=== PATIENT | male | born 1955 | race Caucasian/White ===

== ENCOUNTER → 2017-02-11 | Outpatient (CLI) | payer BC ==
[2017-02-11 08:18] LABS: CH 31.6; CHCM 33.3; HCT 46.5 % (39.0-53.0); HDW 2.65; HGB 15.6 gm/dL (13.0-17.5); MCH 32.2 pg (25.0-35.0); MCHC 33.7 g/dL (31.0-37.0); MCV 95.8 fL (80.0-100.0); Mean Platelet Volume 7.3; RBC 4.85 m/uL (4.30-5.90); WBC 5.7 k/uL (3.8-10.6)
[2017-02-11 12:17] LABS: Hemoglobin A1C 5.8 % (4.2-6.1)
[2017-02-11 14:48] LABS: ALT 54 U/L (21-72); AST 45 U/L (17-59); Alkaline Phosphatase 44 U/L (38-126); Anion Gap 11 mmol/L; Blood Urea Nitrogen 23 mg/dL (9-20); Calcium 10.1 mg/dL (8.4-10.2); Carbon Dioxide 23 mmol/L (22-30); Chloride 107 mmol/L (98-107); Glucose 105 mg/dL (74-99); Non-African American GFR(MDRD) >60 (>60 ml/min/1.73 sqM); Potassium 5.2 mmol/L (3.5-5.1); Sodium 141 mmol/L (137-145); Total Bilirubin 0.7 mg/dL (0.2-1.3); Total Protein 7.4 g/dL (6.3-8.2)
[2017-02-11 15:19] LABS: Prostate Specific Antigen 2.94 ng/mL (0.00-4.00)
[2017-02-14 15:28] LABS: Mis test requested (Blood) NMR LIPID PROFILE
== END | disposition home or self-care (01) ==
LOC: LABWHC1 07:41
PROVIDERS: ATTEND Internal Medicine Cardiovascular Disease
DX: I25.10 Atherosclerotic heart disease of native coronary artery without angina pectoris (principal)
CPT/HCPCS: 36415; 80053; 83036; 83704; 84153; 85027

== ENCOUNTER → 2017-10-02 | Outpatient (CLI) | payer BC ==
[2017-10-02 13:28] LABS: Potassium 5.1 mmol/L (3.5-5.1)
== END | disposition home or self-care (01) ==
LOC: LABWHC1 12:01
PROVIDERS: ATTEND Internal Medicine
DX: E87.5 Hyperkalemia (principal)
CPT/HCPCS: 36415; 80051

== ENCOUNTER 2022-04-16 03:59 | Emergency (ER) | payer MEDICARE ==
[2022-04-16 04:04] VITALS: BP 198/98; PULSE 69; RESP 18; TEMP 98.2
--- NOTE | 2022-04-16 04:05 | ED ---
Recheck HPI - General Chief Complaint: Urogenital Stated Complaint: Catheter Problem, Unable to Urinate Time Seen by Provider: 04/16/22 04:05 Source: patient, RN notes reviewed, old records reviewed Mode of arrival: ambulatory Limitations: no limitations - History of Present Illness Initial Comments: This is a 67-year-old male to the emergency department for evaluation patient is scheduled states he has current Duval catheter placed. Patient states the catheter has not drained since 9:00 last night. He does have abdominal pain. Mild nausea no vomiting no other complaints. Patient presents for catheter isn't working MD Complaint: other (Duval catheter not quite working) -: hour(s) Returns Today for: persistent/worsening pain related to initial visit Symptoms Since Prior Visit: worsening pain Associated Symptoms: nausea, abdominal pain Treatments Prior to Arrival: urinary catheter in place - Related Data Home Medications Medication Instructions Recorded Confirmed Aspirin [Adult Low Dose Aspirin EC] 81 mg PO HS 01/09/16 11/30/21 Metoprolol Tartrate [Lopressor] 25 mg PO BID-W/MEALS 01/09/16 11/30/21 lisinopriL [Zestril] 10 mg PO DAILY@1300 01/09/16 11/30/21 Rosuvastatin [Crestor] 10 mg PO HS 11/30/21 11/30/21 Tamsulosin [Flomax] 0.8 mg PO DAILY 11/30/21 11/30/21 Previous Rx's Medication Instructions Recorded Sulfamethox-Tmp 800-160Mg [Bactrim 1 tab PO Q12HR #14 tab 11/30/21 DS 800-160 mg] Allergies Allergy/AdvReac Type Severity Reaction Status Date / Time niacin Allergy Rash/Hives Verified 04/16/22 04:04 Review of Systems ROS Statement: Those systems with pertinent positive or pertinent negative responses have been documented in the HPI. ROS Other: All systems not noted in ROS Statement are negative. Past Medical History Past Medical History: Hyperlipidemia, Hypertension, Prostate Disorder History of Any Multi-Drug Resistant Organisms: None Reported Past Surgical History: Appendectomy Additional Past Surgical History / Comment(s): splenectomy Past Psychological History: No Psychological Hx Reported Smoking Status: Never smoker Past Alcohol Use History: None Reported Past Drug Use History: None Reported General Exam General appearance: alert, in no apparent distress Head exam: Present: atraumatic, normocephalic, normal inspection Eye exam: Present: normal appearance, PERRL, EOMI. Absent: scleral icterus, conjunctival injection, periorbital swelling ENT exam: Present: normal exam, mucous membranes moist Neck exam: Present: normal inspection. Absent: tenderness, meningismus, lymphadenopathy Respiratory exam: Present: normal lung sounds bilaterally. Absent: respiratory distress, wheezes, rales, rhonchi, stridor Cardiovascular Exam: Present: regular rate, normal rhythm, normal heart sounds. Absent: systolic murmur, diastolic murmur, rubs, gallop, clicks GI/Abdominal exam: Present: soft, normal bowel sounds. Absent: distended, tenderness, guarding, rebound, rigid Extremities exam: Present: normal inspection, full ROM, normal capillary refill. Absent: tenderness, pedal edema, joint swelling, calf tenderness Back exam: Present: normal inspection Neurological exam: Present: alert, oriented X3, CN II-XII intact Psychiatric exam: Present: normal affect, normal mood Skin exam: Present: warm, dry, intact, normal color. Absent: rash Course Vital Signs 04/16/22 04:01 Temperature 98.2 F Pulse Rate 69 Respiratory 18 Rate Blood Pressure 198/98 O2 Sat by Pulse 98 Oximetry - Reevaluation(s) Reevaluation #1: 04/16/22 04:23 Medical record is reviewed Reevaluation #2: 04/16/22 04:23 Duval catheter is flushed, blood clot removed and now working Reevaluation #3: 04/16/22 04:23 Patient for catheter is improved, informed of findings, questions answered Medical Decision Making - Medical Decision Making 67 male with Duval catheter, flushed secondary to clot, clot is removed for catheter not working without difficulty Disposition Clinical Impression: Malfunction of Duval catheter Disposition: HOME SELF-CARE Condition: Good Instructions (If sedation given, give patient instructions): Duval Catheter Placement and Care (ED) Is patient prescribed a controlled substance at d/c from ED?: No Referrals: Tonia Donaldson MD [Primary Care Provider] - 1-2 days Time of Disposition: 04:30
== END 2022-04-16 04:56 | disposition home or self-care (01) ==
LOC: EC 03:59
DX: T83.091A Other mechanical complication of indwelling urethral catheter, initial encounter (principal); I10 Essential (primary) hypertension; E78.5 Hyperlipidemia, unspecified; Z79.82 Long term (current) use of aspirin; Z90.49 Acquired absence of other specified parts of digestive tract; Z79.899 Other long term (current) drug therapy
CPT/HCPCS: 99283

== ENCOUNTER 2022-05-10 07:30 | Inpatient (IN) | payer MEDICARE ==
[2022-07-04 08:59] VITALS: BMI 28.8
--- NOTE | 2022-07-04 12:23 | P.HPIHPCON ---
History of Present Illness H&P Date: 07/04/22 This is 67 yo male with hx of urinary retention secondary to BPH. has failed multiple trial of void. Option of a robotic simple prostatectomy versus HoLEP was discussed with him. discussed risk, benefit in details. He agreed to proceed with a robotic simple prostatectomy. Discussed with him the risk which includes but not limited to bleeding, infection, urinary incontinence, erectile dysfuntion, retrograde ejaculation, urethral stricture, persistent retention. Medical consultation was also discussed with him. Discussed he is at higher risk of intraoperative complication given his multiple previous abdominal surgeries. Discussed also the risk of injury to nearby organs which includes bu t not limited to the bladder, the ureter, bowel and rectum. He understood all the risk and agreed with to proceed with a robotic simple prostatectomy Consent for Procedure: I have explained the operation/procedure to the patient, including the risks, benefits, side effects, alternative therapies (including not receiving the proposed treatment or service), the likelihood of the patient achieving his/her goals, and potential recuperation problems for the procedure/sedation/analgesia, as well as any blood products, if indicated. I also explained to the patient the risks, benefits and side effects of the alternatives, as well as the risks related to not receiving the proposed procedure, care, treatment, or services. Past Medical History Past Medical History: Hyperlipidemia, Hypertension, Myocardial Infarction ([place]), Prostate Disorder Additional Past Medical History / Comment(s): "Think I have arthritis in my right ankle", wears as a brace as needed. On Bactrim currently for UTI. Last Myocardial Infarction Date:: 2009 History of Any Multi-Drug Resistant Organisms: None Reported Past Surgical History: Appendectomy, Hernia Repair, Orthopedic Surgery Additional Past Surgical History / Comment(s): Splenectomy, 1 cardiac stent, hernia repair(3 at once), left wrist surgery Past Anesthesia/Blood Transfusion Reactions: No Reported Reaction Past Psychological History: Anxiety Smoking Status: Former smoker Past Alcohol Use History: None Reported Additional Past Alcohol Use History / Comment(s): Smoked for 28 yrs, quit in 2009. Past Drug Use History: None Reported - Past Family History Father Family Medical History: Cancer Additional Family Medical History / Comment(s): Prostate cancer. Medications and Allergies Home Medications Medication Instructions Recorded Confirmed Type Aspirin [Adult Low Dose Aspirin EC] 81 mg PO HS 01/09/16 07/04/22 History Metoprolol Tartrate [Lopressor] 25 mg PO BID-W/MEALS 01/09/16 07/04/22 History lisinopriL [Zestril] 10 mg PO DAILY@1300 01/09/16 07/04/22 History Rosuvastatin [Crestor] 20 mg PO HS 11/30/21 07/04/22 History Sulfamethox-Tmp 800-160Mg [Bactrim 1 tab PO Q12HR #14 tab 11/30/21 07/04/22 Rx DS 800-160 mg] Tamsulosin [Flomax] 0.8 mg PO HS 11/30/21 07/04/22 History Allergies Allergy/AdvReac Type Severity Reaction Status Date / Time niacin Allergy Rash/Hives Verified 07/04/22 08:37 Surgical - Exam - General no distress, no pain - Eyes normal ocular movement, no pale - ENT normal nares, normal mucosa - Respiratory normal expansion, normal respiratory effort - Abdomen Abdomen: soft, non tender Assessment and Plan Assessment: OR for robotic simple prostatectomy
[2022-07-05] MEDS ORDERED: HEPARIN SODIUM,PORCINE/PF 5,000 UNIT/0.5 ML SYRINGE SQ PRN (05:00)
[2022-07-05] MEDS ORDERED: GENTAMICIN 120 MG in SODIUM CHLORIDE 0.9% 100 ML IVPB PRN (05:00)
[2022-07-05] MEDS ORDERED: DEXAMETHASONE SOD PHOSPHATE 4 MG/ML 1 ML VIAL IV ONE (05:56)
[2022-07-05] MEDS ORDERED: LIDOCAINE 1% (10MG/ML) FOR IV START INTRADERMA PRN (05:56)
[2022-07-05] MEDS: LACTATED RINGERS 1,000 ML IV SCH (06:26)
[2022-07-05] MEDS ORDERED: HYDROmorphone 0.5 MG/0.5 ML SYRINGE IVP PRN (07:00)
[2022-07-05] MEDS ORDERED: ONDANSETRON 4 MG/2 ML VIAL IVP PRN (07:00)
[2022-07-05] MEDS ORDERED: MIDAZOLAM 2 MG/2 ML VIAL IVP ONE (07:12)
[2022-07-05] MEDS ORDERED: LIDOCAINE 2% INJ 20 MG/ML (2 ML VIAL) ONE (07:35)
[2022-07-05] MEDS ORDERED: ePHEDrine 50 MG/ML 1 ML VIAL ONE (07:35)
[2022-07-05] MEDS ORDERED: IV FLUID CONTINUATION 900 ML IV ONE (07:35)
[2022-07-05] MEDS ORDERED: DEXAMETHASONE SOD PHOSPHATE 4 MG/ML 1 ML VIAL ONE (07:35)
[2022-07-05] MEDS ORDERED: SODIUM CHLORIDE 0.9% (PF) 10 ML VIAL ONE (07:35)
[2022-07-05] MEDS ORDERED: MIDAZOLAM 2 MG/2 ML VIAL ONE (07:35)
[2022-07-05] MEDS ORDERED: SUCCINYLCHOLINE CHLORIDE 200 MG/10 ML VIAL IV ONE (07:35)
[2022-07-05] MEDS ORDERED: PROPOFOL 10 MG/ML 20 ML VIAL IV ONE (07:35)
[2022-07-05] MEDS ORDERED: ROCURONIUM 10 MG/ML (5 ML VIAL) IV ONE (07:35)
[2022-07-05] MEDS ORDERED: fentaNYL (PF) 50 MCG/ML 2 ML AMP ONE (07:35)
[2022-07-05] MEDS ORDERED: NEOSTIGMINE 1 MG/ML 10 ML VIAL ONE (07:35)
[2022-07-05] MEDS ORDERED: PHENYLEPHRINE-0.9% NACL SYG 1,000 MCG/10 ML SYRINGE ONE (07:35)
[2022-07-05] MEDS ORDERED: GLYCOPYRROLATE 0.2 MG/ML 2 ML VIAL ONE (07:35)
[2022-07-05] MEDS ORDERED: ROPIVACAINE 5 MG/ML 30 ML VIAL ONE (07:35)
[2022-07-05] MEDS ORDERED: HYDROcodone/APAP 5-325MG 1 EACH TAB PO PRN (07:54)
[2022-07-05] MEDS ORDERED: BUPIVACAIN-EPI 0.25%-1:200,000 30 ML VIAL SQ ONE (08:19)
--- NOTE | 2022-07-05 08:40 | P.ANPRN ---
Procedure Note - Anesthesia - Nerve Block Performed Bilateral Erector Spinae Single Time Out Performed: Yes Date of Procedure: 07/05/22 Procedure Start Time: 07:11 Procedure Stop Time: :19 Location of Patient: PreOp Indication: Acute Post-Operative Pain, Requested by Surgeon Specifically requested for management of pain by DrChet: Álvaro Torres Sedation Type: Sedate with meaningful contact maintained Preparation: Sterile Prep Position: Prone Needle Types: Pajunk Needle Gauge: 21 Ultrasound used to visualize needle placement: Yes Ultrasound used to observe medication spread: Yes Injectate: 0.5% Ropivacaine (see comment for volume) (15 ml +15 ml NS + 4mg Dexamethasone per side) Blood Aspirated: No Pain Paresthesia on Injection Noted: No Resistance on Injection: Normal Image Stored and Saved: Yes Events: Uneventful and Well Tolerated
[2022-07-05] MEDS ORDERED: ONDANSETRON 4 MG/2 ML VIAL IVP ONE (11:16)
[2022-07-05] MEDS: KETOROLAC 15 MG/ML 1 ML VIAL IVP SCH ×2 (11:27→17:20)
[2022-07-05] MEDS ORDERED: lisinopriL 10 MG TAB PO SCH (13:00)
--- NOTE | 2022-07-05 15:16 | P.OP ---
Date of Procedure: 07/05/22 Preoperative Diagnosis: BPH, urinary retention Postoperative Diagnosis: Same Procedure(s) Performed: Robotic simple prostatectomy Implants: none Anesthesia: CALE Surgeon: Álvaro Torres Estimated Blood Loss (ml): 100 Pathology: other (prostate adenoma) Condition: stable Disposition: PACU Indications for Procedure: This is 67 yo male with hx of urinary retention secondary to BPH. has failed multiple trial of void. Option of a robotic simple prostatectomy versus HoLEP was discussed with him. discussed risk, benefit in details. He agreed to proceed with a robotic simple prostatectomy. Discussed with him the risk which includes but not limited to bleeding, infection, urinary incontinence, erectile dysfuntion, retrograde ejaculation, urethral stricture, persistent retention. Medical consultation was also discussed with him. Discussed he is at higher risk of intraoperative complication given his multiple previous abdominal surgeries. Discussed also the risk of injury to nearby organs which includes but not limited to the bladder, the ureter, bowel and rectum. He understood all the risk and agreed with to proceed with a robotic simple prostatectomy Description of Procedure: After preoperative antibiotics were started, the patient was taken to the operating room. Anesthesia was induced and the patient was placed in a supine position with adequate padding of the pressure points, shoulders, back, legs and arms. He was then prepped and draped in the standard fashion. A critical pause was performed using two patient identifiers. A 16F sol catheter was placed to gravity drainage. Supraumbilical incision was made, the subcu cutaneous tissue was dissected down. Next the fascia was identified and incised sharply. Next access was obtained to the peritoneal cavity, and finger sweeping there was no evidence of adhesions along the incision. Next the gel point was placed after pneumoperitoneum was obtained a 8 mm camera port was placed. Under direct vision a 8mm robotic ports was placed lateral to each rectus slightly below the camera port. The left iliac fossa 8mm port was placed. The right assistant produce manager right iliac fossa 12mm port and right paramedian 5mm portwere placed. After the patient was placed in the trendelenberg position, the robot was then docked to the 8mm robotic ports and then each robotic arm and tower was checked in relation to the patient's legs and hands to avoid inadvertent compression. The peritoneal cavity was inspected. Adhesions were taken down along the left lower quadrant An inverted U-shaped incision began laterally to the left medial umbilical ligament and extended high across the midline to the right umbilical ligament. The limbs of the "U" extended to the level of the vasa on both sides. We next developed the preperitoneal space and the space of Retzius. Cautery was used to dissected the bladder away from the prostate, the incision was made in close proximity to the prostate, and incision was extended laterally and at this point the plane between the adenoma and the surgical capsule is identified. Both ureteral orifices were identified and neither was injured during the dissection . The adenoma was dissected off of the capsule by com bination of blunt dissection and minimum cautery. dissection was initially started along the anterior surface and posterior surface of adenoma, and this was carried laterally. The dissection was carried to the apex, at this point the urethral-prostatic junction was visualized and the prostate was transected at the junction. Prostate adenoma was placed in an endocatch bag . A 9and 6 inch 3-0 V-Lock suture was used to anastomose the urethra and bladder, starting at the 6:00 posterior position. Mucosa was secured in every stitch, to ensure a mucosa to mucosa anastomosis. The stitch was regularly cinched and the anastomosis tightened. . The 20 Fr Sol catheter was advanced, the bladder filled, and the anastomosis was tested. Anastomsis was watertight at 150 mL. balloon was inflated to 10 mL The robot was undocked. specimen was extracted from the supraumbilical incision. The periumbilical fascia was closed with 1-0-PDS suture in figure of 8 fashion. All ports were closed with a subcuticular 4-0 monocryl and Dermabond. Sponge, instrument, and needle counts were correct at the end of the case x2. The patient tolerated the surgery well and without complication. He awoke without difficulty and was taken to the recovery room in stable condition
[2022-07-05] MEDS: HEPARIN SODIUM,PORCINE/PF 5,000 UNIT/0.5 ML SYRINGE SQ SCH ×2 (16:28→17:21)
[2022-07-05] MEDS: D5-0.45% NACL WITH KCL 20MEQ/L 1,000 ML IV SCH (17:21)
[2022-07-05] MEDS: METOPROLOL TARTRATE 25 MG TAB PO SCH (17:21)
[2022-07-05] MEDS ORDERED: ATORVASTATIN 40 MG TAB PO SCH (21:00)
[2022-07-06] MEDS: KETOROLAC 15 MG/ML 1 ML VIAL IVP SCH ×2 (00:17→05:46)
[2022-07-06] MEDS: HEPARIN SODIUM,PORCINE/PF 5,000 UNIT/0.5 ML SYRINGE SQ SCH ×2 (00:18→07:40)
[2022-07-06] MEDS: D5-0.45% NACL WITH KCL 20MEQ/L 1,000 ML IV SCH ×2 (02:13→07:13)
[2022-07-06] MEDS: LACTATED RINGERS 1,000 ML IV SCH (07:13)
[2022-07-06] MEDS: METOPROLOL TARTRATE 25 MG TAB PO SCH (07:40)
--- NOTE | 2022-07-06 07:46 | P.DS ---
Providers Date of admission: 07/05/22 05:37 Attending physician: Álvaro Torres MD Primary care physician: [facility] Course: The patient was admitted to the hospital 07/05/2022 for robotic simple prostatectomy. He underwent this without difficulty. Postoperatively did well. Vital signs are stable. His urine is clear. Abdomen soft. His pain is under control. We discharged home with a catheter. A follow-up with Dr. Torres on . Postoperative instructions been given. Patient Condition at Discharge: Good Plan - Discharge Summary Discharge Rx Participant: Yes New Discharge Prescriptions: New HYDROcodone/APAP 5-325MG [Export 5-325] 1 tab PO Q4HR PRN #10 tab PRN Reason: Pain No Action Metoprolol Tartrate [Lopressor] 25 mg PO BID-W/MEALS lisinopriL [Zestril] 10 mg PO DAILY@1300 Aspirin [Adult Low Dose Aspirin EC] 81 mg PO HS Tamsulosin [Flomax] 0.8 mg PO HS Rosuvastatin [Crestor] 20 mg PO HS Sulfamethox-Tmp 800-160Mg [Bactrim DS 800-160 mg] 1 tab PO Q12HR #14 tab Discharge Medication List Aspirin [Adult Low Dose Aspirin EC] 81 mg PO HS 01/09/16 [History] Metoprolol Tartrate [Lopressor] 25 mg PO BID-W/MEALS 01/09/16 [History] lisinopriL [Zestril] 10 mg PO DAILY@1300 01/09/16 [History] Rosuvastatin [Crestor] 20 mg PO HS 11/30/21 [History] Sulfamethox-Tmp 800-160Mg [Bactrim DS 800-160 mg] 1 tab PO Q12HR #14 tab 11/30/21 [Rx] Tamsulosin [Flomax] 0.8 mg PO HS 11/30/21 [History] HYDROcodone/APAP 5-325MG [Export 5-325] 1 tab PO Q4HR PRN #10 tab 07/06/22 [Rx] Follow up Appointment(s)/Referral(s): Álvaro Torres MD [STAFF PHYSICIAN] - 1 Week Activity/Diet/Wound Care/Special Instructions: home with catheter. Please instruct in use Discharge Disposition: HOME SELF-CARE
[2022-07-06 09:40] VITALS: BP 156/81; PULSE 71; RESP 18; TEMP 97.9
== END 2022-07-06 10:25 | disposition home or self-care (01) | DRG 708 ==
LOC: 2ORMAIN 07-05 05:37 → 4SSUR 07-05 14:04
PROVIDERS: ADMIT Urology; ATTEND Urology
PROC: 8E0W4CZ Robotic Assisted Procedure of Trunk Region, Percutaneous Endoscopic Approach (ICD-10-PCS; 2022-07-05)
PROC: 3E0T3BZ Introduction of Anesthetic Agent into Peripheral Nerves and Plexi, Percutaneous Approach (ICD-10-PCS; 2022-07-05)
PROC: 0VT04ZZ Resection of Prostate, Percutaneous Endoscopic Approach (ICD-10-PCS; principal; 2022-07-05 07:30)
DX: N40.1 Benign prostatic hyperplasia with lower urinary tract symptoms (principal); R33.8 Other retention of urine; M19.071 Primary osteoarthritis, right ankle and foot; I25.5 Ischemic cardiomyopathy; I10 Essential (primary) hypertension; E78.5 Hyperlipidemia, unspecified; I25.2 Old myocardial infarction; Z88.8 Allergy status to other drugs, medicaments and biological substances; Z87.19 Personal history of other diseases of the digestive system; Z87.440 Personal history of urinary (tract) infections; Z95.5 Presence of coronary angioplasty implant and graft; Z87.891 Personal history of nicotine dependence
CPT/HCPCS: 64999; 76942; 80048; 85025; 86850; 86900; 86901; 87086; 88307